=== PATIENT | male | born 1985 | race Caucasian/White ===

== ENCOUNTER → 2019-12-17 14:54 | Outpatient (BNVA) | payer OTHER, SELFPAY | PROVIDERS: Visit Provider Orthopaedic Surgery | DX: S76.302A Unspecified injury of muscle, fascia and tendon of the posterior muscle group at thigh level, left thigh, initial encounter (principal) | CPT/HCPCS: 99213 ==

== ENCOUNTER → 2020-02-18 13:44 | Outpatient (BNVA) | payer OTHER, SELFPAY | PROVIDERS: Visit Provider Orthopaedic Surgery | DX: S76.102D Unspecified injury of left quadriceps muscle, fascia and tendon, subsequent encounter (principal) | CPT/HCPCS: 99212 ==

== ENCOUNTER 2020-09-22 11:40 | Outpatient (REF) | payer OTHER, SELFPAY ==
--- NOTE | ~2020-09-22 | XR_ITS ---
EXAMINATION: XR KNEE STANDING, BILATERAL XR KNEE, LEFT CLINICAL INFORMATION: Pain. COMPARISON: Left knee CT dated 08/18/2019. TECHNIQUE: AP standing view of the right and left knee. Lateral and sunrise views of the left knee. FINDINGS: No acute fracture or dislocation. No significant joint space narrowing or marginal osteophytes. No osseous erosion. Superior and inferior patellar enthesophytes. No abnormal soft tissue calcification. No joint effusion. XR/XR knee LT 2V IMPRESSION: Unremarkable examination.
--- NOTE | ~2020-09-22 | XR_ITS ---
EXAMINATION: XR KNEE STANDING, BILATERAL XR KNEE, LEFT CLINICAL INFORMATION: Pain. COMPARISON: Left knee CT dated 08/18/2019. TECHNIQUE: AP standing view of the right and left knee. Lateral and sunrise views of the left knee. FINDINGS: No acute fracture or dislocation. No significant joint space narrowing or marginal osteophytes. No osseous erosion. Superior and inferior patellar enthesophytes. No abnormal soft tissue calcification. No joint effusion. XR/XR knee standing BI IMPRESSION: Unremarkable examination.
== END 2020-09-22 11:41 | disposition home or self-care (01) ==
LOC: HO.HOSX 11:40
PROVIDERS: Visit Provider Physician Assistant
DX: S83.90XA Sprain of unspecified site of unspecified knee, initial encounter (principal)
CPT/HCPCS: 73560; 73565; 99202

== ENCOUNTER → 2020-11-03 13:10 | Outpatient (BNVA) | payer OTHER, SELFPAY | PROVIDERS: Visit Provider Physician Assistant | DX: S83.92XD Sprain of unspecified site of left knee, subsequent encounter (principal) | CPT/HCPCS: 99212 ==

== ENCOUNTER → 2020-12-15 12:58 | Outpatient (BNVA) | payer OTHER, SELFPAY | PROVIDERS: Visit Provider Physician Assistant | DX: S83.92XA Sprain of unspecified site of left knee, initial encounter (principal); X58.XXXA Exposure to other specified factors, initial encounter; Y93.9 Activity, unspecified; Y92.9 Unspecified place or not applicable; Y99.8 Other external cause status | CPT/HCPCS: 99212 ==

== ENCOUNTER 2023-10-25 08:00 | Outpatient (RCR) | payer OTHER, BC, SELFPAY | END 2023-11-29 07:26 | disposition home or self-care (01) | LOC: HO.PTCHIC 08:00 | PROVIDERS: PCP Family Medicine; Visit Provider Internal Medicine | DX: S76.112D Strain of left quadriceps muscle, fascia and tendon, subsequent encounter (principal); M76.9 Unspecified enthesopathy, lower limb, excluding foot | CPT/HCPCS: 97110; 97162 ==

== ENCOUNTER 2024-03-15 10:00 | Outpatient (RCR) | payer OTHER, BC, SELFPAY | END 2024-03-18 12:11 | disposition home or self-care (01) | LOC: HO.PTCHIC 10:00 | PROVIDERS: PCP Family Medicine; Visit Provider Internal Medicine | DX: S76.112A Strain of left quadriceps muscle, fascia and tendon, initial encounter (principal) | CPT/HCPCS: 97110; 97161 ==